=== PATIENT | female | born 1960 | race Caucasian/White ===

== ENCOUNTER 2018-06-19 00:30 | Outpatient (CLI) | payer BC, SELFPAY ==
--- NOTE | 2018-06-19 08:00 | DI.MAMMO_ITS ---
SYMPTOM/DIAGNOSIS: SCREENING, Z12.31 MAMMOGRAMS: Mammograms were interpreted according to the usual protocol including computer analysis with CAD system, tomosynthesis and C view imaging. Comparison with prior examinations. Breast density B. No masses or microcalcifications are seen. There is nothing to suggest malignancy. IMPRESSION: Negative mammogram. Routine screening is recommended. Category I. MQSA ASSESSMENT OF FINDINGS: Negative. Category 1. Patient will receive a letter notifying them of these results. BI-RADS category B. There are scattered areas of fibroglandular density.
[2018-06-19 09:12] LABS: Glucose 99 mg/dL (70-100); TSH 2.94 uIU/mL (0.358-3.74)
== END 2018-06-19 00:50 ==
PROVIDERS: PCP Family Medicine; Visit Provider Family Medicine
DX: Z12.31 Encounter for screening mammogram for malignant neoplasm of breast (principal); E03.9 Hypothyroidism, unspecified
CPT/HCPCS: 36415; 77063; 77067; 82947; 84443

== ENCOUNTER 2018-07-08 11:58 | Outpatient (REF) | payer BC, SELFPAY ==
--- NOTE | 2018-07-08 10:30 | PAPFT_PTH ---
PATIENT: Carolann Cassidy LOC: [place] U#:[id number] AGE/SX: 58/F ROOM: RE07/08/[address]: PRAMOD Bose : 1960 BED: DIS: 07/08/2018 SPEC #: [id number] RECD: 07/08/18 12:47 STATUS: ELLIOT REQ #: [id number] CHAVEZ: 07/08/18 10:[address]: Elin Major DEPT: [facility] Cytology RECD BY: Candice Hairston ENTERED: 07/08/18 12:47 SP TYPE: PAPFT MORRIS DR: Marielena Garcia MD Tissues: 1 - CX/ENDOCX FOR PAP SMEARS Procedures: PAP THIN PREP/UVM Screening HPV DNA PROBE Comments: [id number]
== END 2018-07-08 12:18 ==
LOC: LBN 11:58
PROVIDERS: PCP Family Medicine; Visit Provider Nurse Practitioner Family
DX: Z12.4 Encounter for screening for malignant neoplasm of cervix (principal); Z11.51 Encounter for screening for human papillomavirus (HPV)
CPT/HCPCS: 88142; 87624

== ENCOUNTER 2018-07-25 01:00 | Outpatient (CLI) | payer BC, SELFPAY ==
--- NOTE | 2018-07-25 14:20 | MERGE_ITS ---
*[facility]* *[facility]* [address] [place] [address] Date of study: 07/25/2018 Transthoracic Echocardiography M-mode, complete 2D, complete spectral Doppler, and color Doppler *STUDY CONCLUSIONS* Summary: 1. Left ventricle: The cavity size was normal. Wall thickness was increased in a pattern of mild LVH. Systolic function was normal. The estimated ejection fraction was 55-60%. Wall motion was normal; there were no regional wall motion abnormalities. 2. Right ventricle: The cavity size was normal. Systolic function was normal. 3. Left atrium: The atrium was mildly dilated. 4. Ascending aorta: The ascending aorta was moderately dilated (45 mm). 5. Inferior vena cava: The vessel was normal in size. The respirophasic diameter changes were in the normal range (greater than or equal to 50%), consistent with normal central venous pressure. *PATIENT PRESENTATION* Height: 157.5cm ((62in) ) S/D Pressure: 150 / 89 Weight: 81.6kg ((179.6lb) ) BSA: 1.92m^2 Test start time: 02:15 PM. Test stop time: 03:10 PM. PERFORMING Unknown REFERRING Marielena Garcia PERFORMING [facility] PROCESS IMPROVEMENT CONSULTANT Leah Fortune ORDERING Rajani Leonard REFERRING Rajani Leonard *PROCEDURE DATA* Procedure information: This study was interpreted by [facility]. Pertinent images and digital data are archived for permanent storage and are available for subsequent review. No prior study was available for comparison. Study status: Routine. Transthoracic echocardiography. M-mode, complete 2D, complete spectral Doppler, and color Doppler. A Transthoracic Echocardiogram was performed. Scanning was performed from the parasternal, apical, subcostal, and suprasternal notch acoustic windows. Images were obtained using an [employer] 2000 cardiac ultrasound machine. Image quality was adequate. Study completion: The patient tolerated the procedure well. There were no complications. History: PMH: Murmur. *CARDIAC ANATOMY* Left ventricle: The cavity size was normal. Wall thickness was increased in a pattern of mild LVH. Systolic function was normal. The estimated ejection fraction was 55-60%. Wall motion was normal; there were no regional wall motion abnormalities. Findings consistent with diastolic dysfunction. There was no evidence of elevated ventricular filling pressure by Doppler parameters. Aortic valve: Trileaflet; mildly thickened, mildly calcified leaflets. Mobility was not restricted. Doppler: Transvalvular velocity was within the normal range. There was no stenosis. There was no significant regurgitation. VTI ratio of LVOT to aortic valve: 0.68. Valve area (VTI): 2cm^2. Indexed valve area (VTI): 1cm^2/m^2. Peak velocity ratio of LVOT to aortic valve: 0.72. Valve area (Vmax): 2.1cm^2. Indexed valve area (Vmax): 1.1cm^2/m^2. Mean velocity ratio of LVOT to aortic valve: 0.6. Valve area (Vmean): 1.8cm^2. Indexed valve area (Vmean): 0.9cm^2/m^2. Mean gradient (S): 4.9mm Hg. Peak gradient (S): 8.5mm Hg. Aorta: Aortic root: The aortic root was normal in size. Ascending aorta: The ascending aorta was moderately dilated (45 mm). Mitral valve: Structurally normal valve. Mobility was not restricted. Doppler: Transvalvular velocity was within the normal range. There was no evidence for stenosis. There was trivial regurgitation. Valve area by pressure half-time: 4.8cm^2. Indexed valve area by pressure half-time: 2.5cm^2/m^2. Peak gradient (D): 3mm Hg. Left atrium: The atrium was mildly dilated. Right ventricle: The cavity size was normal. Systolic function was normal. Pulmonic valve: Poorly visualized. Doppler: Transvalvular velocity was within the normal range. There was no evidence for stenosis. There was trivial regurgitation. Tricuspid valve: Structurally normal valve. Doppler: Transvalvular velocity was within the normal range. There was no evidence for stenosis. There was trivial regurgitation. Pulmonary artery: Poorly visualized. Pulmonary systolic pressure was within the normal range, in the range of 20mm Hg to 25mm Hg. Right atrium: The atrium was normal in size. Pericardium: There was no pericardial effusion. Systemic veins: Inferior vena cava: The vessel was normal in size. The respirophasic diameter changes were in the normal range (greater than or equal to 50%), consistent with normal central venous pressure. Measurements Left ventricle Value Reference LV ID, ED, PLAX 4.3 cm 3.5 - 6.0 LV ID, ES, PLAX 3.1 cm 2.1 - 4.0 LV PW thickness, ED, PLAX 1.0 cm LV end-diastolic volume, 1-p A2C 96 ml LV ejection fraction, 1-p A2C 65 % LV end-diastolic volume, 1-p A4C 81 ml LV ejection fraction, 1-p A4C 58 % LV e', lateral 0.098 m/sec LV E/e', lateral 9 LV e', medial 0.132 m/sec LV E/e', medial 7 LV e', average 0.115 m/sec LV E/e', average 8 Ventricular septum Value Reference IVS thickness, ED, PLAX 1.1 cm LVOT Value Reference LVOT ID, A-P 1.9 cm LVOT area 2.9 cm^2 LVOT peak velocity, S 1.04 m/sec LVOT mean velocity, S 0.62 m/sec LVOT VTI, S 23.9 cm LVOT peak gradient, S 4.4 mm Hg LVOT mean gradient, S 1.9 mm Hg Stroke volume (SV), LVOT DP 70 ml Stroke index (SV/bsa), LVOT DP 36 ml/m^2 Aortic valve Value Reference Aortic valve peak velocity, S 1.5 m/sec Aortic valve mean velocity, S 1.03 m/sec Aortic valve VTI, S 35.0 cm Aortic mean gradient, S 4.9 mm Hg Aortic peak gradient, S 8.5 mm Hg VTI ratio, LVOT/AV 0.68 Aortic valve area, VTI 2 cm^2 Velocity ratio, peak, LVOT/AV 0.72 Aortic valve area, peak velocity 2.1 cm^2 Velocity ratio, mean, LVOT/AV 0.6 Aortic valve area, mean velocity 1.8 cm^2 Aortic valve area/bsa, mean velocity 0.9 cm^2/m^2 Aorta Value Reference Aortic root ID, ED 3.2 cm Ascending aorta ID, A-P, S 4.5 cm Left atrium Value Reference LA ID, A-P, ES 3.9 cm LA ID/bsa, A-P 2.0 cm/m^2 <=2.2 LA area, ES, A4C 23.2 cm^2 8.8 - 23.4 LA area, ES, A2C 17 cm^2 LA volume/bsa, S 37 ml/m^2 LA volume, ES, 2-p 62 ml LA volume/bsa, ES, 2-p 32 ml/m^2 LA/aortic root ratio 1.23 Mitral valve Value Reference Mitral E-wave peak velocity 0.87 m/sec Mitral A-wave peak velocity 1 m/sec Mitral deceleration time 160 ms 150 - 230 Mitral pressure half-time 46 ms Mitral peak gradient, D 3 mm Hg Mitral E/A ratio, peak 0.87 Mitral valve area, PHT, DP 4.8 cm^2 Tricuspid valve Value Reference Tricuspid regurg peak velocity 2.3 m/sec Tricuspid peak RV-RA gradient 20.5 mm Hg Right atrium Value Reference RA area, ES, A4C 17.8 cm^2 8.3 - 19.5 Legend: (L) and (H) edmar values outside specified reference range. I have personally reviewed the images and have reviewed and edited the reported findings. Electronically signed by Heraclio Valverde 07/25/2018 15:36
== END 2018-07-25 01:20 ==
PROVIDERS: PCP Family Medicine; Visit Provider Family Medicine
DX: R01.1 Cardiac murmur, unspecified (principal); G47.33 Obstructive sleep apnea (adult) (pediatric); R93.1 Abnormal findings on diagnostic imaging of heart and coronary circulation
CPT/HCPCS: 93306

== ENCOUNTER 2019-06-18 01:22 | Outpatient (CLI) | payer BC, SELFPAY ==
[2019-06-18 14:41] LABS: TSH 3.14 uIU/mL (0.36-3.74)
== END 2019-06-18 01:42 ==
PROVIDERS: PCP Family Medicine; Visit Provider Family Medicine
DX: E03.9 Hypothyroidism, unspecified (principal)
CPT/HCPCS: 36415; 84443

== ENCOUNTER 2019-06-23 01:46 | Outpatient (CLI) | payer BC, SELFPAY ==
--- NOTE | 2019-06-23 07:49 | DI.RAD_ITS ---
INDICATION: LEFT KNEE PAIN, M25.562 COMPARISON: None TECHNIQUE: 2D digital imaging was performed. FINDINGS: There is no evidence of fracture or joint effusion. The joint spaces are well maintained. There ar e no significant degenerative changes. IMPRESSION: Negative left knee.
== END 2019-06-23 02:06 ==
PROVIDERS: PCP Family Medicine; Visit Provider Family Medicine
DX: M25.562 Pain in left knee (principal)
CPT/HCPCS: 73562

== ENCOUNTER 2019-07-14 01:55 | Outpatient (CLI) | payer BC, SELFPAY ==
--- NOTE | 2019-07-14 14:50 | DI.MAMMO_ITS ---
EXAM: MG MAMMO SCREENING CLINICAL HISTORY: Screening, Z12.39 TECHNIQUE: Bilateral full field digital CC and MLO mammographic images were obtained with 3D tomosyn thesis and utilizing computer aided detection (CAD). COMPARISON: Available for comparison. FINDINGS: Masses/Architectural Distortion: None seen. Microcalcifications: No suspicious pleomorphic-type are seen. Skin Thickening/Nipple Retraction: None. IMPRESSION: 1. No significant interval change with no specific features of malignancy noted. 2. Unless there is more urgent need, screening mammography is recommended, as per [employer] guidelines. ACR BI-RAD Category- 1 Negative Breast Density - Category B - Scattered areas of fibroglandular density A negative radiographic report should not delay biopsy if a dominant or clinically suspicious mass is present. Up to ten percent of cancers are not identified on mammography. A negative report may reinforce clinical impression. Adenosis and dense breasts may obscure an underlying neoplasm. False positive reports average 6 to 10%.
== END 2019-07-14 02:15 ==
PROVIDERS: PCP Family Medicine; Visit Provider Family Medicine
DX: Z12.31 Encounter for screening mammogram for malignant neoplasm of breast (principal)
CPT/HCPCS: 77063; 77067

== ENCOUNTER 2019-11-03 10:16 | Outpatient (CLI) | payer BC, SELFPAY ==
[2019-11-03 11:41] LABS: TSH 1.77 uIU/mL (0.36-3.74)
== END 2019-11-03 10:36 ==
PROVIDERS: PCP Family Medicine; Visit Provider Family Medicine
DX: F32.9 Major depressive disorder, single episode, unspecified (principal)
CPT/HCPCS: 36415; 84443

== ENCOUNTER 2020-04-29 08:13 | Outpatient (CLI) | payer BC, SELFPAY ==
[2020-05-02 00:59] LABS: SARS-CoV-2 RNA Undetected (Undetected); SARS-CoV-2 Specimen Source Nasopharynx
== END 2020-04-29 08:33 ==
PROVIDERS: PCP Family Medicine; Visit Provider Family Medicine
DX: Z11.59 Encounter for screening for other viral diseases (principal)
CPT/HCPCS: U0003

== ENCOUNTER 2021-01-17 01:17 | Outpatient (CLI) | payer BC, SELFPAY ==
--- NOTE | 2021-01-17 08:08 | DI.MAMMO_ITS ---
Exam(s) MAMMO SCREENING EXAM: MAMMO SCREENING CLINICAL HISTORY: screening,Z12.39 TECHNIQUE: Bilateral full field digital CC and MLO mammographic images were obtained with 3D tomosyn thesis and utilizing computer aided detection (CAD). COMPARISON: Available for comparison. FINDINGS: Masses/Architectural Distortion: None seen. Microcalcifications: No suspicious pleomorphic-type are seen. Skin Thickening/Nipple Retraction: None. IMPRESSION: 1. No significant interval change with no specific features of malignancy noted. 2. Unless there is more urgent need, screening mammography is recommended, as per [employer] guidelines. BI-RADS Category 1 - Negative Breast Density - Category B - Scattered areas of fibroglandular density Breast density category C or D implies that the patient has dense breast tissue. Dense breast tissue is very common and is not abnormal but dense breast tissue can make it harder to find cancer on a ma mmogram. Also, dense breast tissue may increase their breast cancer risk. This information about the result of the mammogram report was provided to the patient to raise their awareness. Use this report when you speak with the patient about their risks for breast cancer, which includes their family hist ory. At that time, you may recommend for more screening tests (Ultrasound or MRI) as they might be us eful based on their risk. A negative radiographic report should not delay biopsy if a dominant or clinically suspicious mass is present. Up to ten percent of cancers are not identified on mammography. A negative report may reinforce clinical impression. Adenosis and dense breasts may obscure an underlying neoplasm. False positive reports average 6 to 10%. Patient will receive a letter notifying them of these results.
== END 2021-01-17 01:37 ==
PROVIDERS: PCP Family Medicine; Visit Provider Family Medicine
DX: Z12.31 Encounter for screening mammogram for malignant neoplasm of breast (principal)
CPT/HCPCS: 77063; 77067

== ENCOUNTER 2021-01-20 01:21 | Outpatient (CLI) | payer BC, SELFPAY ==
[2021-01-20 07:42] LABS: Abs Immature Grans 0.01 10^3/uL (0.0-0.06); Absolute Basophil Count 0.03 10^3/uL (0.0-0.2); Absolute Eosinophil Count 0.21 10^3/uL (0.0-0.7); Absolute Lymphocyte Count 1.45 10^3/uL (1.2-3.4); Absolute Monocyte Count 0.52 10^3/uL (0.1-0.8); Absolute Neutrophil Count 3.35 10^3/uL (1.2-6.7); Basophils % 0.5; Eosinophils % 3.8; HCT 38.8 % (36.0-46.0); HGB 12.7 g/dL (11.2-15.7); Immature Grans % 0.2; MCH 28.2 pg (27.0-33.0); MCHC 32.7 % (32.0-36.0); MCV 86.2 fL (80-95); MPV 9.4 fL (8.0-11.0); Monocytes % 9.3; Neutrophils % 60.2; Nucleated RBC 0 %; Platelet Count 321 10^3/uL (130-400); RDW 13.9 % (11.7-14.6); RDW-SD 44.3 fL; WBC 5.57 10^3/uL (4.4-10.8)
[2021-01-20 09:00] LABS: ALT 41 U/L (14-59); AST 25 U/L (15-37); Albumin 4.3 g/dL (3.4-5.0); Alkaline Phosphatase 84 U/L (46-116); Anion Gap 7.3 mmol/L (3-11); BUN 7 mg/dL (7-18); Bilirubin, Total 0.3 mg/dL (0.2-1.0); CO2 29.7 mmol/L (21.0-32.0); Calcium 9.6 mg/dL (8.5-10.1); Chloride 105 mmol/L (98-107); Estimated GFR 56.18 (mL/min/1.73m2); Ferritin 74 ng/mL (8-252); Glucose 95 mg/dL (74-106); Sodium 142 mmol/L (136-145); TSH 5.58 uIU/mL (0.36-3.74); Total Protein 7.4 g/dL (6.4-8.2)
[2021-01-23 05:32] LABS: Vitamin D 25 Total 29.1 ng/mL (30-100)
== END 2021-01-20 01:22 | disposition home or self-care (01) ==
LOC: LBO 01:22
PROVIDERS: PCP Family Medicine; Visit Provider Family Medicine
DX: E03.9 Hypothyroidism, unspecified (principal); E55.9 Vitamin D deficiency, unspecified; R53.83 Other fatigue
CPT/HCPCS: 36415; 80053; 82306; 82728; 84443; 85025

== ENCOUNTER 2021-11-17 04:00 | Outpatient (CLI) | payer BC, SELFPAY ==
[2021-11-17 08:44] LABS: Hemoglobin A1C 5.9 % (<5.7)
[2021-11-17 09:51] LABS: BUN 10 mg/dL (7-18); CREATININE 1.1 mg/dL (0.55-1.02); Calcium 9.5 mg/dL (8.5-10.1); Calculated LDL 186 mg/dL (<100); Chloride 105 mmol/L (98-107); Cholesterol 264 mg/dL (<200); Estimated GFR 50.17 (mL/min/1.73m2); Glucose 109 mg/dL (74-106); HDL Cholesterol 55 mg/dL (40-60); Potassium 4.3 mmol/L (3.5-5.1); Sodium 140 mmol/L (136-145); Triglyceride 119 mg/dL (<150)
[2021-11-17 10:11] LABS: FREE T4 1.04 ng/dL (0.76-1.46)
== END 2021-11-17 04:01 | disposition home or self-care (01) ==
LOC: LBO 04:00
PROVIDERS: PCP Nurse Practitioner Family; Visit Provider Nurse Practitioner Family
DX: E03.9 Hypothyroidism, unspecified (principal)
CPT/HCPCS: 36415; 80048; 80061; 83036; 84439; 84443

== ENCOUNTER 2022-01-11 12:45 | Outpatient (REF) | payer BC, SELFPAY ==
--- NOTE | 2022-01-11 09:45 | PAPFT_PTH ---
PATIENT: Carolann Cassidy LOC: [place] U#:[id number] AGE/SX: 61/F ROOM: RE01/11/[address]: Yessenia Ram, PhD [employer] : 1960 BED: DIS: 01/11/2022 SPEC #: [id number] RECD: 01/11/22 12:56 STATUS: ELLIOT REJonathon #: [id number] CHAVEZ: 01/11/22 09:[address]: Yessenia Ram DEPT: [facility] Cytology RECD BY: Candice Hairston ENTERED: 01/11/22 12:56 SP TYPE: PAPFT OTHR DR: Rajani Leonard, POSTAL DELIVERY OFFICER Tissues: 1 - CX/ENDOCX FOR PAP SMEARS Procedures: PAP THIN PREP/UVM Screening HPV DNA PROBE Comments: [id number]
== END 2022-01-11 12:46 | disposition home or self-care (01) ==
LOC: LBN 12:45
PROVIDERS: PCP Nurse Practitioner Family; Visit Provider Nurse Practitioner
DX: Z12.4 Encounter for screening for malignant neoplasm of cervix (principal); Z11.51 Encounter for screening for human papillomavirus (HPV)
CPT/HCPCS: 88142; 87624

== ENCOUNTER → 2022-03-06 00:17 | Outpatient (CLI) | payer BC, SELFPAY ==
--- NOTE | 2022-03-06 08:00 | DI.MAMMO_ITS ---
Exam(s) MAMMO SCREENING EXAM: MAMMO SCREENING CLINICAL HISTORY: screening, Z12.39 TECHNIQUE: Mammograms were interpreted according to the usual protocol including computer analysis w [employer] CAD system, tomosynthesis and C-view imaging. COMPARISON: 2011 through 2020 FINDINGS: The breasts are composed of scattered fibroglandular densities, Breast Density category B. No suspicious masses or suspicious microcalcifications are seen. No skin thickening or abnormal axillary lymph nodes are seen. There has been no significant change from prior exams. IMPRESSION: BI-RADS Category 1, Negative mammogram Yearly screening mammography is recommended. Breast Density - Category B, scattered fibroglandular densities. A negative radiographic report should not delay biopsy if a dominant or clinically suspicious mass is present. Up to ten percent of cancers are not identified on mammography. A negative report may reinforce clinical impression. Adenosis and dense breasts may obscure an underlying neoplasm. False positive reports average 6 to 10%. Patient will receive a letter notifying them of these results.
== END ==
PROVIDERS: PCP Nurse Practitioner Family; Visit Provider Nurse Practitioner
DX: Z12.31 Encounter for screening mammogram for malignant neoplasm of breast (principal)
CPT/HCPCS: 77063; 77067

== ENCOUNTER 2022-09-11 04:02 | Outpatient (CLI) | payer BC, SELFPAY ==
[2022-09-11 16:51] LABS: Anion Gap 6.3 mmol/L (3-11); BUN 11 mg/dL (7-18); CO2 31.7 mmol/L (21.0-32.0); Calcium 9.8 mg/dL (8.5-10.1); Chloride 103 mmol/L (98-107); Estimated GFR 62.91 (mL/min/1.73m2); Glucose 80 mg/dL (74-106); Potassium 3.8 mmol/L (3.5-5.1); Sodium 141 mmol/L (136-145)
== END 2022-09-11 04:03 | disposition home or self-care (01) ==
PROVIDERS: PCP Nurse Practitioner Family; Visit Provider Nurse Practitioner Family
DX: E66.9 Obesity, unspecified (principal)
CPT/HCPCS: 36415; 80048

== ENCOUNTER 2022-12-15 16:50 | Emergency (ER) | payer BC, SELFPAY ==
[2022-12-15 16:53] VITALS: BP 134/95; PULSE 103; RESP 18; TEMP 36.6; O2SAT 99
--- NOTE | 2022-12-15 17:55 | ED.GENADUL_ITS ---
Discharge Plan Disposition Patient Disposition: Home Discharge Details Clinical Impression: Spasm of muscle of lower back Primary Care Provider: Rajani Leonard ED Provider: Guero Isabel [facility] [employer] Meds and New Rx's Prescriptions: New ibuprofen 600 mg tablet 600 mg PO TID Qty: 15 0RF lidocaine 5 % adhesive patch,medicated 1 patch topical DAILY Qty: 15 0RF Rx Instructions: leave on most painful area for up to 12 hrs diazepam 5 mg tablet 5 mg PO .q6-8h PRN (Reason: muscle spasm) Qty: 12 0RF Continued CPAP Inhalation melatonin 10 mg capsule 10 mg PO HS PRN (DME) pen needle, diabetic [BD Ultra-Fine Mini Pen Needle] 31 gauge x 3/16 needle See Rx Instructions .Route Qty: 100 3RF Rx Instructions: Use with liraglutide pen daily amitriptyline 50 mg tablet 50 mg PO HS Qty: 90 4RF levothyroxine 150 mcg tablet 150 mcg PO DAILY Qty: 90 4RF sertraline [Zoloft] 100 mg tablet 150 mg PO DAILY Qty: 135 4RF Rx Instructions: Take one and a half tablet daily bupropion HCl 150 mg tablet extended release 24 hr 150 mg PO QAM Qty: 90 4RF bupropion HCl 300 mg tablet extended release 24 hr 300 mg PO QAM Qty: 90 4RF Rx Instructions: for a total of 450 mg daily albuterol sulfate 90 mcg/actuation HFA aerosol inhaler See Rx Instructions .ROUTE .COMPLEX Qty: 34 3RF Dose Instruction: USE 1 TO 2 INHALATIONS BY MOUTH 4 TIMES DAILY NEEDED PRIOR TO EXERCISE Rx Instructions: USE 1 TO 2 INHALATIONS BY MOUTH 4 TIMES DAILY NEEDED PRIOR TO EXERCISE Saxenda 3 mg/0.5 mL (18 mg/3 mL) pen injector 3 mg subcut DAILY Qty: 15 3RF Rx Instructions: inject 3 mg subcutaneously daily Discharge Instructions Instructions: Muscle Spasm (ED) Additional Instructions: You were seen in the ED for low back pain and spasm. You responded to IV ketorolac and diazepam. Your laboratory studies and CT scan are reassuring. Your urinalysis is questionable for possible infection but we will wait for culture before deciding to treat. Prescriptions for ibuprofen, diazepam, lidocaine patches have been sent to your pharmacy. Please pick them up in the morning. Note lidocaine patch can go on for 12 hours and must be removed for 12 hours. Would therefore plan on using during the day not at night. Heat and gentle stretching will probably help. Please follow-up with primary care next week. Return to the ED if you develop worsening pain, abdominal pain, fever, bladder or bowel dysfunction, numbness or weakness to the legs. Medical Decision Making Patient presenting with severe low back pain without history of same, no injury, unable to get comfortable. Differential includes musculoskeletal, renal colic, less likely disc disease given lack of radicular symptoms. She is neurologically intact in the lower extremities. She does appear to be in severe discomfort. IV established and diazepam and ketorolac given. Laboratory studies obtained. CT scan of the abdomen pelvis for kidney stone obtained. Patient's laboratory studies are unremarkable. White count minimally elevated. Chemistries unremarkable. Urinalysis with trace leukocyte esterase, 5-10 white cells. We will hold off on treating for UTI given minimal white cells on micro and lack of definite urinary symptoms. Patient CT scan without ureteral stone. Some degenerative change of the LS spine. No acute pathology. Patient markedly improved after IV Valium and ketorolac. Discussed above with patient and . We will plan discharge home on ibuprofen and diazepam orally. Will add lidocaine patch. Rest over the weekend. Heat and gentle stretching and follow-up with primary care next week. Return precautions provided. Lab Data Lab results reviewed: Yes I reviewed the patient's lab results. HPI General Mode of arrival: ambulatory . Date/Time Provider Initiated Documentation: 12/15/22 17:55 . Limitations to Documentation: no limitations . Information obtained by: patient . HPI Narrative: Patient presents to ED with low back pain that she describes as sharp and s tabbing. It started this morning and has become worse over time. She is unable to find any type of comfortable position. She has never had this previously. She denies any injury, fall, exercise. She denies fever or chills. She denies abdominal pain, vomiting, diarrhea. She denies any urinary symptoms. She has never had kidney stones. She denies any pain, numbness, weakness in the legs. Pain seems to be more left-sided than left but is not completely unilateral. Related Data Home Medications Medication Instructions Recorded Confirmed CPAP inhalation 06/12/18 11/09/22 melatonin 10 mg capsule 10 mg PO HS PRN 06/17/19 12/15/22 amitriptyline 50 mg tablet 50 mg PO HS #90 tabs 01/11/22 12/15/22 levothyroxine 150 mcg tablet 150 mcg PO DAILY #90 tabs 01/11/22 12/15/22 sertraline 100 mg tablet (Zoloft) 150 mg PO DAILY #135 tabs 01/11/22 12/15/22 bupropion HCl 150 mg 24 hr tablet, 150 mg PO QAM #90 tabs 01/12/22 12/15/22 extended release bupropion HCl 300 mg 24 hr tablet, 300 mg PO QAM #90 tabs 01/12/22 12/15/22 extended release albuterol sulfate 90 mcg/actuation See Rx Instructions .Route 05/29/22 12/15/22 aerosol inhaler .COMPLEX #34 grams pen needle, diabetic 31 gauge x #100 ea 08/17/22 12/15/2216 (BD Ultra-Fine Mini Pen Needle) liraglutide (weight loss) 3 mg/0.5 3 mg (0.5 mL) subcut DAILY #15 12/05/22 12/15/22 mL (18 mg/3 mL) subcut pen SYRGS injector (Saxenda) diazepam 5 mg tablet 5 mg PO .q6-8h PRN muscle spasm 12/15/22 #12 tabs ibuprofen 600 mg tablet 600 mg PO TID #15 tabs 12/15/22 lidocaine 5 % topical patch 1 patch topical DAILY #15 ea 12/15/22 Previous Rx's Medication Instructions Recorded amitriptyline 50 mg tablet 50 mg PO HS #90 tabs 01/11/22 levothyroxine 150 mcg tablet 150 mcg PO DAILY #90 tabs 01/11/22 sertraline 100 mg tablet (Zoloft) 150 mg PO DAILY #135 tabs 01/11/22 bupropion HCl 150 mg 24 hr tablet, 150 mg PO QAM #90 tabs 01/12/22 extended release bupropion HCl 300 mg 24 hr tablet, 300 mg PO QAM #90 tabs 01/12/22 extended release albuterol sulfate 90 mcg/actuation See Rx Instructions .Route 05/29/22 aerosol inhaler .COMPLEX #34 grams pen needle, diabetic 31 gauge x #100 ea 08/17/22 316 (BD Ultra-Fine Mini Pen Needle) liraglutide (weight loss) 3 mg/0.5 3 mg (0.5 mL) subcut DAILY #15 12/05/22 mL (18 mg/3 mL) subcut pen SYRGS injector (Saxenda) diazepam 5 mg tablet 5 mg PO .q6-8h PRN muscle spasm 12/15/22 #12 tabs ibuprofen 600 mg tablet 600 mg PO TID #15 tabs 12/15/22 lidocaine 5 % topical patch 1 patch topical DAILY #15 ea 12/15/22 Allergies Allergy/AdvReac Type Severity Reaction Status Date / Time No Known Drug Allergies Allergy Verified 12/15/22 17:00 General Stated Complaint: Nk/Back Pain CARLEY: 4 Review of Systems Narrative: see HPI PFSH All Active Problems (Updated 12/15/22 @ 19:52 by Guero Isabel MD) Spasm of muscle of lower back (Acute) Severe obesity (BMI 35.0-39.9) with comorbidity (Chronic) Trigger finger, left ring finger (Chronic) Dupuytren contracture (Chronic) right little finger, left middle finger Sensorineural hearing loss, bilateral (Chronic) Carpal tunnel syndrome (Chronic) Rosacea (Chronic) Medical History Hyperlipidemia Hypothyroidism Major depressive disorder, recurrent Migraine Obstructive sleep apnea Uses CPAP with good effect Prediabetes Primary fibromyalgia syndrome Surgical History History of appendectomy S/P carpal tunnel release (2012) Bilateral Family History Mother Essential hypertension Heart disease Father , AGE 75 Abdominal aortic aneurysm Hearing loss Sister Alcohol abuse Depression Sister Hypothyroidism Depression Brother Hypothyroidism Brother Femoral artery aneurysm repaired Hearing loss Brother , AGE 57-SUICIDE Alcohol abuse Depression Brother Hypothyroidism Brother No problems noted. Brother Abdominal aortic aneurysm Maternal Grandfather , AGE 48-AUTO ACCIDENT No problems noted. Paternal Grandfather Alcohol abuse Maternal Grandmother Ovarian cancer Uterine cancer Paternal Grandmother Pulmonary tuberculosis Son No problems noted. Son No problems noted. Son No problems noted. Daughter No problems noted. Son No problems noted. Social History Smoking/Tobacco Use Status: Never Second Hand Exposure: Yes Smoking risk assessment performed?: Yes Alcohol Intake: current Alcohol Intake frequency: holidays/special occasions only Alcohol type: beer Drug use: Never Substance use type: does not use Caregiver/Support person: No Household members: spouse Housing: house Communication Needs: None Do you need help understanding health information?: Never current occupation: SCHOOL NURSE Pets and animals: Yes Pets and animals: cat(s) Sexually active: No Do you think of yourself as: straight/heterosexual Current gender identity: female What is your relationship status?: How often do you talk on the phone with friends or family?: once per week How often do you get together with friends or relatives?: once per week How often do you attend anabaptist or congregational services?: 4 or more times per year Do you belong to any clubs or organized social groups?: yes Panel score (0-1 are the most socially isolated patients): 3 What type of physical activity do you participate in: walking Duration: 30-45 minutes/day Frequency: daily Lakia/Yarsani: Lutheran Special lakia needs: No Seatbelt use: always Helmet use: Yes Helmet use: always Drive intox or ride w/intox minibus driver: No Exam Narrative Exam Narrative: Const: WDWN female standing holding right back in pain. HEENT: NC/AT. Normal facial exam. Eyes: Normal conjunctiva and sclera. Neck: Supple. Trachea midline. Lungs: Normal respiratory effort. Lungs are clear. Cor: RRR without murmur/gallop. Good radial pulses. GI: Soft. NT/ND. No guarding or rebound. Back: Tender left low back. Decrease ROM low back due to pain. Neuro: A+O x 3. Normal speech, mentation, gait. Cranial nerves II - XII grossly intact. No gross motor or sensory deficit. Ext: No C/C/E. Skin: Warm and dry without rash or erythema. Course Vital Signs Vital signs: Vital Signs Temperature 97.9 F 12/15/22 16:53 Pulse 103 H 12/15/22 16:53 Respiratory Rate 18 12/15/22 16:53 Blood Pressure 134/95 H 12/15/22 16:53 Pulse Oximetry 99 12/15/22 16:53 Temperature 97.9 F 12/15/22 16:53 Temperature Source Tympanic 12/15/22 16:53 Pulse 103 H 12/15/22 16:53 Respiratory Rate 18 12/15/22 16:53 Respiratory Effort Normal 12/15/22 16:57 Blood Pressure 134/95 H 12/15/22 16:53 Blood Pressure Position Sitting 12/15/22 16:53 Pulse Oximetry 99 12/15/22 16:53 Oxygen Delivery Method Room Air 12/15/22 16:53 Oxygen Flow Rate 0 12/15/22 16:53 Pain Level 10 12/15/22 16:57
--- NOTE | 2022-12-15 18:00 | DI.CT_ITS ---
Exam(s) CT RENAL COLIC WO EXAM: CT RENAL COLIC WO CLINICAL HISTORY: right back pain. TECHNIQUE: Imaging Protocol: Axial computed tomography images with coronal and sagittal reformatted images were created and reviewed CONTRAST MATERIAL: Intravenous: none Oral: None COMPARISON: No exams were available for comparison FINDINGS: VISUALIZED LUNG BASES: There are 2 adjacent small noncalcified nodules in the lateral segment of the right middle lobe, these measuring 4 and 5 mm. No other lung base findings and no pleural effusions. ABDOMEN: There is no ascites. GI: There is evidence of previous bowel surgery in the upper right iliac fossa. There are few fecali zed small bowel loops but no high-grade bowel obstruction evident. No free air. LIVER: There are no obvious focal hepatic lesions evident of this noninfused study. GALLBLADDER/BILIARY: No obvious gallbladder pathology. CBD is not dilated. PANCREAS: No evidence of pancreatic mass nor dilatation of the pancreatic duct. SPLEEN: Spleen is not enlarged. No obvious intrasplenic lesions. Calcified splenic granuloma noted. ADRENALS: There are no significant adrenal masses. KIDNEYS:No cysts evident. No solid renal masses. No calculi nor hydronephrosis. . ABDOMINAL AORTA: Abdominal aorta is not enlarged. LYMPH NODES: There is no retroperitoneal nor paraaortic adenopathy. ABDOMINAL WALL: No evidence of significant anterior abdominal wall nor inguinal hernia. PELVIS: LYMPH NODES: There is no intrapelvic nor inguinal adenopathy. GI: No evidence of appendicitis.No evidence of sigmoid diverticulitis. URINARY BLADDER: No calculi nor obvious masses evident REPRODUCTIVE: Uterus and adnexal regions appear age-appropriate. No adnexal masses. No free fluid. OSSEOUS: No significant osseous lesions. IMPRESSION: 1. Evidence of previous right iliac fossa bowel surgery, possibly appendectomy. There few fecalized small bowel loops but there is no high-grade bowel obstruction. No free air. No abscess. No ascite s. 2. There are 2 small noncalcified nodules in the anterior right lung base-right middle lobe lateral s egment. These measure 5 and 4 mm. Recommend follow-up CT scan of the chest to determine if there ar e additional nodules. RADIATION DOSE DELIVERED: 878.92mGy.cm Total DLP DATA REPOSITORY: All CT scans at this facility are submitted to the National Radiology Data Registry (NRDR) Dose Index Registry (DIR) with the [employer] (ACR). RADIATION OPTIMIZATION: All CT scans at this facility use at least one of these dose optimization te chniques: automated exposure control; mA and/or kV adjustment per patient size (includes targeted exa ms where dose is matched to clinical indication); or iterative reconstruction.
[2022-12-15 18:22] LABS: Abs Immature Grans 0.05 10^3/uL (0.0-0.06); Absolute Basophil Count 0.05 10^3/uL (0.0-0.2); Absolute Eosinophil Count 0.25 10^3/uL (0.0-0.7); Absolute Monocyte Count 0.95 10^3/uL (0.1-0.8); Absolute Neutrophil Count 8.72 10^3/uL (1.2-6.7); Basophils % 0.4; Eosinophils % 2.1; HCT 41.5 % (36.0-46.0); Immature Grans % 0.4; Lymphocytes % 15.7; MCH 28.6 pg (27.0-33.0); MCHC 33.7 % (32.0-36.0); MCV 85 fL (80-95); MPV 9.1 fL (8.0-11.0); Neutrophils % 73.4; Platelet Count 431 10^3/uL (130-400); RBC 4.89 10^6/uL (3.93-5.22); RDW 13.5 % (11.7-14.6); RDW-SD 42.3 fL; WBC 11.88 10^3/uL (4.4-10.8)
[2022-12-15] MEDS: diazePAM 10 MG/2 ML SYR 5 MG IVP (18:24)
[2022-12-15] MEDS: Ketorolac 15 MG/ML VIAL IVP (18:25)
[2022-12-15] MEDS: Normal Saline 1,000 ML 1000 ML IV (18:25)
[2022-12-15 18:28] LABS: Absolute Lymphocyte Count 1.87 10^3/uL (1.2-3.4)
[2022-12-15 18:40] LABS: ALT 26 U/L (14-59); AST 20 U/L (15-37); Albumin 4.6 g/dL (3.4-5.0); Alkaline Phosphatase 94 U/L (46-116); Anion Gap 9.4 mmol/L (3-11); BUN 11 mg/dL (7-18); Bilirubin, Total 0.3 mg/dL (0.2-1.0); CO2 25.6 mmol/L (21.0-32.0); Calcium 10.6 mg/dL (8.5-10.1); Chloride 103 mmol/L (98-107); Estimated GFR 62.91 (mL/min/1.73m2); Glucose 100 mg/dL (74-106); Potassium 4.3 mmol/L (3.5-5.1); Sodium 138 mmol/L (136-145); Total Protein 8.3 g/dL (6.4-8.2)
--- NOTE | 2022-12-15 19:05 | DI.VRAD_ITS ---
PROCEDURE INFORMATION: Exam: CT Abdomen And Pelvis Without Contrast Exam date and time: 12/15/2022 6:44 PM Age: 62 years old Clinical indication: Other: Right side back pain TECHNIQUE: Imaging protocol: Computed tomography of the abdomen and pelvis without contrast. COMPARISON: US AAA SCREENING 05/11/2016 5:19 PM FINDINGS: Lungs: There are 2 noncalcified pulmonary nodules in the visualized portion of the right middle lobe, each measuring approximally 5 mm. Lower lungs are otherwise clear. Liver: Normal. No mass. Gallbladder and bile ducts: Normal. No calcified stones. No ductal dilation. Pancreas: Normal. No ductal dilation. Spleen: Normal. No splenomegaly. Adrenal glands: Normal. No mass. Kidneys and ureters: Normal. No hydronephrosis. Stomach and bowel: Unremarkable. No obstruction. No mucosal thickening. Appendix: No evidence of appendicitis. Intraperitoneal space: Unremarkable. No free air. No significant fluid collection. Vasculature: Unremarkable. No abdominal aortic aneurysm. Lymph nodes: Unremarkable. No enlarged lymph nodes. Urinary bladder: Unremarkable as visualized. Reproductive: Unremarkable as visualized. Bones/joints: Mild multilevel degenerative disc changes noted throughout the lower thoracic and lumbar spine. Soft tissues: Unremarkable. IMPRESSION: 1. Mild degenerative changes in the lumbar spine. No acute osseous abnormality 2. Two 5 mm noncalcified pulmonary nodules in the right middle lobe. For patients at low risk (minimal or absent history of smoking and of other known risk factors), no routine follow-up is indicated. For patients at high risk (history of smoking or of other known risk factors), consider optional CT Chest at 12 months. (Reference: Katherine) References: Katherine H, et al. Guidelines for Management of Incidental Pulmonary Nodules Detected on CT Images: From the Fleischner Society 2017. Radiology. 2017;284(1):228-243. Dictated and Authenticated by: Jasper Lerner MD. Ordering:ANDREE Jack MD
[2022-12-15 19:25] VITALS: BP 143/64; PULSE 77
[2022-12-15 19:36] LABS: Bilirubin Negative (Negative); Blood Negative (Negative); Clarity Clear (Clear); Glucose Negative (Negative); Ketones Negative (Negative); Leukocyte Esterase Trace (Negative); Nitrite Negative (Negative); Specific Gravity 1.015 (1.005-1.025); Urobilinogen 0.2 mg/dL (Up to 0.2)
[2022-12-15 19:41] LABS: Bacteria Rare HPF (Negative); C & S Indicated? Yes; Casts Negative LPF (Negative); Crystals Negative HPF (Negative); Epithelial Cells Rare HPF (Negative); Mucus Negative (Negative); RBC Negative HPF (0-2)
[2022-12-15 20:15] VITALS: BP 118/78; PULSE 80; O2SAT 93
--- NOTE | 2022-12-18 15:41 | W.EDPROG ---
Date of service: 12/18/22 Time of Service: 15:41 Medical Decision Making Called patient regarding positive urine culture. Gram-positive martin mixed less than 10,000 colonies per milliliter, likely contaminant. Patient has no urinary symptoms at this time. We will follow with her primary care physician. Will return to the emergency department for any worsening symptoms. Discharge Plan Disposition Patient Disposition: Home Discharge Details Clinical Impression: Spasm of muscle of lower back Primary Care Provider: Rajani Leonard ED Provider: Guero Isabel Richmond Adrias and New Rx's Prescriptions: New ibuprofen 600 mg tablet 600 mg PO TID Qty: 15 0RF lidocaine 5 % adhesive patch,medicated 1 patch topical DAILY Qty: 15 0RF Rx Instructions: leave on most painful area for up to 12 hrs diazepam 5 mg tablet 5 mg PO .q6-8h PRN (Reason: muscle spasm) Qty: 12 0RF Continued CPAP Inhalation melatonin 10 mg capsule 10 mg PO HS PRN (DME) pen needle, diabetic [BD Ultra-Fine Mini Pen Needle] 31 gauge x 3/16 needle See Rx Instructions .Route Qty: 100 3RF Rx Instructions: Use with liraglutide pen daily amitriptyline 50 mg tablet 50 mg PO HS Qty: 90 4RF levothyroxine 150 mcg tablet 150 mcg PO DAILY Qty: 90 4RF sertraline [Zoloft] 100 mg tablet 150 mg PO DAILY Qty: 135 4RF Rx Instructions: Take one and a half tablet daily bupropion HCl 150 mg tablet extended release 24 hr 150 mg PO QAM Qty: 90 4RF bupropion HCl 300 mg tablet extended release 24 hr 300 mg PO QAM Qty: 90 4RF Rx Instructions: for a total of 450 mg daily albuterol sulfate 90 mcg/actuation HFA aerosol inhaler See Rx Instructions .ROUTE .COMPLEX Qty: 34 3RF Dose Instruction: USE 1 TO 2 INHALATIONS BY MOUTH 4 TIMES DAILY NEEDED PRIOR TO EXERCISE Rx Instructions: USE 1 TO 2 INHALATIONS BY MOUTH 4 TIMES DAILY NEEDED PRIOR TO EXERCISE Saxenda 3 mg/0.5 mL (18 mg/3 mL) pen injector 3 mg subcut DAILY Qty: 15 3RF Rx Instructions: inject 3 mg subcutaneously daily Discharge Instructions Instructions: Muscle Spasm (ED) Additional Instructions: You were seen in the ED for low back pain and spasm. You responded to IV ketorolac and diazepam. Your laboratory studies and CT scan are reassuring. Your urinalysis is questionable for possible infection but we will wait for culture before deciding to treat. Prescriptions for ibuprofen, diazepam, lidocaine patches have been sent to your pharmacy. Please pick them up in the morning. Note lidocaine patch can go on for 12 hours and must be removed for 12 hours. Would therefore plan on using during the day not at night. Heat and gentle stretching will probably help. Please follow-up with primary care next week. Return to the ED if you develop worsening pain, abdominal pain, fever, bladder or bowel dysfunction, numbness or weakness to the legs. Discharge Data Discharge Date/Time-TO BE ENTERED AT DEPARTURE: 12/15/22 20:55
== END 2022-12-15 20:55 | disposition home or self-care (01) ==
PROVIDERS: Emergency Provider Emergency Medicine; PCP Nurse Practitioner Family
DX: M62.830 Muscle spasm of back (principal); D72.829 Elevated white blood cell count, unspecified; E03.9 Hypothyroidism, unspecified
CPT/HCPCS: 36415; 80053; 96361; 96374; 96375; 99284; 74176; 81003; 81015; 85025; 87086; J1885; J3360

== ENCOUNTER 2023-01-02 02:55 | Outpatient (CLI) | payer BC, SELFPAY ==
[2023-01-02 07:59] LABS: Calculated LDL 172 mg/dL (<100); Cholesterol 246 mg/dL (<200); HDL Cholesterol 60 mg/dL (40-60); TSH (W/Ref FT4) 0.85 uIU/mL (0.36-3.74); Triglyceride 74 mg/dL (<150)
== END 2023-01-02 02:56 | disposition home or self-care (01) ==
LOC: LBO 02:55
PROVIDERS: PCP Nurse Practitioner Family; Visit Provider Nurse Practitioner Family
DX: E03.9 Hypothyroidism, unspecified (principal); E78.5 Hyperlipidemia, unspecified
CPT/HCPCS: 36415; 80061; 84443

== ENCOUNTER 2023-02-20 02:22 | Outpatient (CLI) | payer BC, SELFPAY ==
--- NOTE | 2023-02-20 07:15 | DI.CT_ITS ---
Exam(s) CT THORAX ABD/PEL CTA EXAM: CT THORAX ABD/PEL CTA CLINICAL HISTORY: known thoracic ANEURYSM,? MORE ANEURYSMS,I71.21. TECHNIQUE: Imaging Protocol: Axial CT angiography was performed with multi-slice acquisition and m ulti-planar and/or 3D reconstructions. CONTRAST MATERIAL: Intravenous: Omnipaque 350 contrast volume:100 mL Oral: No COMPARISON: CT CT RENAL COLIC WO from 12/15/[address] CHEST WO from 01/15/2023 FINDINGS: The lung apices were not included on this examination. CHEST: Tracheobronchial tree: Patent where visualized. Pulmonary parenchyma: There is a stable 5 mm nodule in the lateral aspect of the right middle lobe. More inferiorly in the right middle lobe there is also 4 mm nodule which is stable. There are no foc al consolidating infiltrates seen. Atelectasis is seen in the lung bases. No new pulmonary nodules are appreciated. No architectural distortion. Pulmonary Arteries: No evidence of filling defect to suggest pulmonary emboli. There is prominence of the main pulmonary artery and left pulmonary artery. This can be seen with pulmonary artery hyperte nsion. Please correlate clinically. Mediastinum and Emily: No dominant adenopathy or fluid collection. The esophagus is unremarkable. Visualized thyroid: Unremarkable. Pleura: No effusion or pneumothorax. Heart: Cardiomegaly. No coronary artery calcifications are seen. No pericardial effusion. Aorta: The ascending thoracic aorta measures 5.1 x 4.8 cm. The descending thoracic aorta is of brian l caliber. No evidence of dissection. Soft Tissues: Unremarkable. Bones: Within normal limits for the patient's age. ABDOMEN AND PELVIS: Abdomen: Celiac axis/mesenteric arteries: No evidence of occlusion or significant stenosis. There is focal di latation of the celiac artery measuring 1.4 cm. Renal Arteries: No evidence of occlusion or significant stenosis. There is a single renal artery per fusing each kidney. Aorta: No evidence of occlusion or significant stenosis. No aneurysm or dissection. Pelvis: Iliac Arteries: No evidence of occlusion or significant stenosis. Common Femoral Arteries: No evidence of occlusion or significant stenosis. ABDOMEN: Liver: Normal density. No measurable mass. Gallbladder and Biliary Tract: No radiodense calculus or dilation. Pancreas: Normal density, no abnormal calcifications or inflammatory process. Spleen: Normal. There is a calcified granuloma in the spleen. Adrenals: No masses seen. Kidneys: Normal size, contour and axis. No radiodense stones or obstructive uropathy. No masses seen. Bowel: No obstruction or bowel wall thickening. Appendix is unremarkable. 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 The duodenum does not cross the midline. Peritoneal Cavity: No ascites, collection or mesenteric inflammatory response. No free air. Lymph Nodes: Within normal limits. Bones: Within normal limits for the patient's age. Soft Tissues: Unremarkable. PELVIS: Bladder: Symmetric distention, no gross wall thickening. Reproductive Organs: Unremarkable as visualized. Lymph Nodes: Within normal limits. Bones: Within normal limits for the patient's age. IMPRESSION: 1. Ascending thoracic aortic aneurysm at 5.1 cm. No evidence of dissection. 2. 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 3. Stable right middle lobe pulmonary nodules. CT scan of the chest in 12 months is recommended for re-evaluation. 4. No evidence of a pulmonary embolus. Prominence of the main pulmonary artery and left pulmonary ar tricia. Pulmonary artery hypertension should be considered. Please correlate with patient's clinical history. 5. Cardiomegaly. Unexpected findings RADIATION DOSE DELIVERED: 961mGy.cm Total DLP DATA REPOSITORY: All CT scans at this facility are submitted to the National Radiology Data Registry (NRDR) Dose Index Registry (DIR) with the [employer] (ACR). RADIATION OPTIMIZATION: All CT scans at this facility use at least one of these dose optimization te chniques: automated exposure control; mA and/or kV adjustment per patient size (includes targeted exa ms where dose is matched to clinical indication); or iterative reconstruction.
[2023-02-20 07:51] LABS: CREATININE 0.9 mg/dL (0.55-1.02); Estimated GFR 71.39 (mL/min/1.73m2)
[2023-02-20] MEDS: Omnipaque 350 MG/ML 500 ML BTL-Imaging package IJ (08:31)
[2023-02-20] MEDS: Normal Saline - Diluent 50 ML VIAL IJ (08:32)
== END 2023-02-20 02:42 ==
PROVIDERS: PCP Nurse Practitioner Family; Visit Provider Nurse Practitioner Family
DX: I71.21 Aneurysm of the ascending aorta, without rupture (principal); R91.8 Other nonspecific abnormal finding of lung field; I51.7 Cardiomegaly
CPT/HCPCS: 71275; 74174; 82565

== ENCOUNTER 2023-03-08 00:09 | Outpatient (CLI) | payer BC, SELFPAY ==
--- NOTE | 2023-03-08 08:11 | DI.MAMMO_ITS ---
Exam(s) MAMMO SCREENING EXAM: MAMMO SCREENING CLINICAL HISTORY: screening, Z12.39 TECHNIQUE: Bilateral full field digital CC and MLO mammographic images were obtained with 3D tomosyn thesis and utilizing computer aided detection (CAD). COMPARISON: Available for comparison. FINDINGS: Masses/Architectural Distortion: None seen. Microcalcifications: No suspicious pleomorphic-type are seen. Skin Thickening/Nipple Retraction: None. IMPRESSION: 1. No significant interval change with no specific features of malignancy noted. 2. Unless there is more urgent need, screening mammography is recommended, as per [employer] guidelines. BI-RADS Category 1 - Negative Breast Density - Category B - Scattered areas of fibroglandular density Breast density category C or D implies that the patient has dense breast tissue. Dense breast tissue is very common and is not abnormal but dense breast tissue can make it harder to find cancer on a ma mmogram. Also, dense breast tissue may increase their breast cancer risk. This information about the result of the mammogram report was provided to the patient to raise their awareness. Use this report when you speak with the patient about their risks for breast cancer, which includes their family hist ory. At that time, you may recommend for more screening tests (Ultrasound or MRI) as they might be us eful based on their risk. A negative radiographic report should not delay biopsy if a dominant or clinically suspicious mass is present. Up to ten percent of cancers are not identified on mammography. A negative report may reinforce clinical impression. Adenosis and dense breasts may obscure an underlying neoplasm. False positive reports average 6 to 10%. Patient will receive a letter notifying them of these results.
== END 2023-03-08 00:29 ==
LOC: DI 00:10
PROVIDERS: PCP Nurse Practitioner Family; Visit Provider Nurse Practitioner Family
DX: Z12.31 Encounter for screening mammogram for malignant neoplasm of breast (principal)
CPT/HCPCS: 77063; 77067

== ENCOUNTER 2024-01-09 05:45 | Outpatient (CLI) | payer BC, SELFPAY ==
[2024-01-09 10:24] LABS: HGB 12.7 g/dL (11.2-15.7); MCH 27.8 pg (27.0-33.0); MCHC 32.6 % (32.0-36.0); MCV 85 fL (80-95); Platelet Count 272 10^3/uL (130-400); RBC 4.57 10^6/uL (3.93-5.22); RDW 13.7 % (11.7-14.6); RDW-SD 42.9 fL; WBC 5.58 10^3/uL (4.4-10.8)
[2024-01-09 10:46] LABS: Hemoglobin A1C 6.1 % (<5.7)
[2024-01-09 10:59] LABS: ALT 31 U/L (14-59); AST 19 U/L (15-37); Albumin 4.1 g/dL (3.4-5.0); Alkaline Phosphatase 99 U/L (46-116); Anion Gap 9.5 mmol/L (3-11); BUN 13 mg/dL (7-18); Bilirubin, Total 0.3 mg/dL (0.2-1.0); CO2 28.5 mmol/L (21.0-32.0); Calcium 9.4 mg/dL (8.5-10.1); Chloride 99 mmol/L (98-107); Estimated GFR 62.52 (mL/min/1.73m2); Glucose 85 mg/dL (74-106); Potassium 4.1 mmol/L (3.5-5.1); Sodium 137 mmol/L (136-145); TSH (W/Ref FT4) 3.58 uIU/mL (0.36-3.74)
[2024-01-09 20:24] LABS: Calculated LDL 145 mg/dL (<100); Cholesterol 217 mg/dL (<200); HDL Cholesterol 54 mg/dL (40-60); Triglyceride 90 mg/dL (<150)
[2024-01-09 20:51] LABS: Hepatitis C Ab w Rflx HCV PCR Negative (Negative)
== END 2024-01-09 05:46 | disposition home or self-care (01) ==
PROVIDERS: PCP Nurse Practitioner Family; Visit Provider Nurse Practitioner Family
DX: R73.03 Prediabetes; I71.21 Aneurysm of the ascending aorta, without rupture; E66.01 Morbid (severe) obesity due to excess calories; E03.9 Hypothyroidism, unspecified; E78.5 Hyperlipidemia, unspecified
CPT/HCPCS: 36415; 80053; 80061; 85027; 86803; 83036; 84443

== ENCOUNTER → 2024-03-23 02:38 | Outpatient (CLI) | payer BC, SELFPAY ==
--- NOTE | 2024-03-23 07:30 | DI.DEXA_ITS ---
Exam(s) XR DEXA BONE DENSITY W/WO SIGRID EXAM: XR DEXA BONE DENSITY W/WO SIGRID CLINICAL HISTORY: osteoporosis screening in postmenopausal woman,z78.0 TECHNIQUE: COMPARISON: No exams were available for comparison FINDINGS: Lateral Spine Image: Unremarkable. No compression deformities identified. Left hip: Total T-Score: -0.4 Total Z-Score: 0.8 T- and Z-scores: Within normal limits. Lumbar Spine: Total T-Score: -1.5 Total Z-Score: 0.3 T- and Z-scores: Findings are consistent with osteopenia. IMPRESSION: No evidence of osteoporosis.
--- NOTE | 2024-03-23 07:30 | DI.MAMMO_ITS ---
Exam(s) MAMMO SCREENING EXAM: MAMMO SCREENING CLINICAL HISTORY: screening,z12.39 TECHNIQUE: Mammograms were interpreted according to the usual protocol including computer analysis w [employer] CAD system, tomosynthesis and C-view imaging. COMPARISON: 2014 through 2022 FINDINGS: The breasts are composed of scattered fibroglandular densities, Breast Density category B. No suspicious masses or suspicious microcalcifications are seen. No skin thickening or abnormal axillary lymph nodes are seen. There has been no significant change from prior exams. IMPRESSION: BI-RADS Category 1, Negative mammogram Yearly screening mammography is recommended. Breast Density - Category B, scattered fibroglandular densities. A negative radiographic report should not delay biopsy if a dominant or clinically suspicious mass is present. Up to ten percent of cancers are not identified on mammography. A negative report may reinforce clinical impression. Adenosis and dense breasts may obscure an underlying neoplasm. False positive reports average 6 to 10%. Patient will receive a letter notifying them of these results.
== END ==
PROVIDERS: PCP Nurse Practitioner Family; Visit Provider Nurse Practitioner Family
DX: Z12.31 Encounter for screening mammogram for malignant neoplasm of breast (principal); M85.88 Other specified disorders of bone density and structure, other site; Z78.0 Asymptomatic menopausal state
CPT/HCPCS: 77063; 77067; 77080

== ENCOUNTER 2024-12-18 01:06 | Outpatient (CLI) | payer BC, SELFPAY ==
[2024-12-18 07:35] LABS: Hemoglobin A1C 5.3 % (<5.7)
[2024-12-18 08:11] LABS: Anion Gap 7.6 mmol/L (3-11); BUN 7 mg/dL (7-18); CO2 28.4 mmol/L (21.0-32.0); CREATININE 0.9 mg/dL (0.55-1.02); Calcium 9.8 mg/dL (8.5-10.1); Calculated LDL 137 mg/dL (<100); Chloride 106 mmol/L (98-107); Cholesterol 206 mg/dL (<200); Estimated GFR 70.51 (mL/min/1.73m2); Glucose 89 mg/dL (74-106); HDL Cholesterol 45 mg/dL (>or=50); Potassium 4.4 mmol/L (3.5-5.1); Sodium 142 mmol/L (136-145); TSH (W/Ref FT4) 0.88 uIU/mL (0.36-3.74); Triglyceride 123 mg/dL (<150)
== END 2024-12-18 01:07 | disposition home or self-care (01) ==
PROVIDERS: PCP Nurse Practitioner Family; Visit Provider Nurse Practitioner Family
DX: E03.9 Hypothyroidism, unspecified (principal); R73.03 Prediabetes; E78.5 Hyperlipidemia, unspecified
CPT/HCPCS: 36415; 80048; 80061; 83036; 84443

== ENCOUNTER 2025-04-27 01:00 | Outpatient (CLI) | payer BC, SELFPAY ==
--- NOTE | 2025-04-27 09:46 | DI.MAMMO_ITS ---
Exam(s) MAMMO SCREENING EXAM: MAMMO SCREENING CLINICAL HISTORY: screening,Z12.39 TECHNIQUE: Mammograms were interpreted according to the usual protocol including computer analysis with CAD system, tomosynthesis and C-view imaging. COMPARISON: 2014 through 2023 FINDINGS: The breasts are composed of scattered fibroglandular densities, Breast Density category B. No suspicious masses or suspicious microcalcifications are seen. No skin thickening or abnormal axillary lymph nodes are seen. There has been no significant change from prior exams. IMPRESSION: BI-RADS Category 1, Negative mammogram Yearly screening mammography is recommended. Breast Density - Category B - There are scattered areas of fibroglandular density. Breast density Category C or D implies that the patient has dense breast tissue. Dense breast tissue can make it harder to find cancer on a mammogram. Dense breast tissue is also associated with an increased risk of breast cancer. This information about the result of the mammogram report was provided to the patient to raise their awareness. Use this report when you speak with the patient about their risks for breast cancer, which includes their family history. At that time, you may recommend additional screening tests (Ultrasound or MRI) as these tests may add significant information. A negative radiographic report should not delay biopsy if a dominant or clinically suspicious mass is present. Up to ten percent of cancers are not identified on mammography. A negative report may reinforce clinical impression. Adenosis and dense breasts may obscure an underlying neoplasm. False positive reports average 6 to 10%. Patient will receive a letter notifying them of these results.
== END 2025-04-27 01:20 ==
LOC: DI 01:00
PROVIDERS: PCP Nurse Practitioner Family; Visit Provider Nurse Practitioner Family
DX: Z12.31 Encounter for screening mammogram for malignant neoplasm of breast (principal); R92.323 Mammographic fibroglandular density, bilateral breasts
CPT/HCPCS: 77063; 77067

== ENCOUNTER 2025-05-28 13:11 | Outpatient (CLI) | payer BC, SELFPAY | END 2025-05-28 13:12 | disposition home or self-care (01) | LOC: LBO 07-16 13:11 | PROVIDERS: PCP Nurse Practitioner Family; Visit Provider Thoracic Surgery (Cardiothoracic Vascular Surgery) | DX: I71.21 Aneurysm of the ascending aorta, without rupture (principal) | CPT/HCPCS: 36415; 82565 ==